=== PATIENT | male | born 1995 | race Caucasian/White ===

== ENCOUNTER 2019-06-06 18:32 | Emergency (ER) | payer OTHER ==
--- NOTE | 2019-06-06 19:07 | ED ---
GI/ HPI - HPI Summary HPI Summary: 24 year old M presenting to [facility] complains of dull pain in his testicle rated 4 /10 in severity after sexual intercourse with his girlfriend at 18:30 today. States his pain developed after he had ejaculated. Doesn't feel sore or like a pulled muscle. No discharge, drainage, swelling, discoloration. No trauma to penis. Hasn't taken any medications for the pain. Never had these sx before. Symptoms aggravated by nothing. Symptoms alleviated by nothing. Patient denies fever, chills, erythema of eyes, sore throat, chest pain, shortness of breath, cough, abdominal pain, nausea/vomiting, dysuria, hematuria, myalgia, edema, rash , or dizziness. - History of Current Complaint Chief Complaint: EDUrogenitalProblems Time Seen by Provider: 06/06/19 19:00 Stated Complaint: GROIN PROBLEM PER PT Hx Obtained From: Patient Onset/Duration: Started Hours Ago, Still Present Timing: Constant Current Severity: Mild Pain Intensity: 3 Location of Pain: Other - left testicle Associated Signs and Symptoms: Positive: Negative - discharge, drainage, swelling, discoloration, fever, chills, erythema of eyes, sore throat, chest pain, shortness of breath, cough, abdominal pain, nausea/vomiting, dysuria, hematuria, myalgia, edema, rash, or dizziness Aggravating Factor(s): Nothing Alleviating Factor(s): Nothing - Allergy/Home Medications Allergies/Adverse Reactions: Allergies Allergy/AdvReac Type Severity Reaction Status Date / Time ibuprofen Allergy Anaphylatic Verified 06/06/19 18:43 Shock Home Medications: Home Medications NK [No Home Medications Reported] 06/06/19 [History Confirmed 06/06/19] PMH/Surg Hx/FS Hx/Imm Hx Endocrine/Hematology History: Denies: Hx Diabetes Cardiovascular History: Denies: Hx Hypertension Respiratory History: Denies: Hx Asthma - Surgical History Surgery Procedure, Year, and Place: 2010 Infectious Disease History: No Infectious Disease History: Denies: Traveled Outside the [place] in Last 30 Days - Family History Known Family History: Positive: Hypertension - father - Social History Alcohol Use: Rare Hx Substance Use: Yes Substance Use Type: Reports: Marijuana Hx Tobacco Use: Yes Smoking Status (MU): Former Smoker Review of Systems Negative: Fever, Chills Negative: Erythema Negative: Sore Throat Negative: Chest Pain Negative: Shortness Of Breath, Cough Negative: Abdominal Pain, Vomiting, Nausea Negative: dysuria, hematuria Negative: Myalgia, Edema Negative: Rash Neurological: Negative - Dizziness All Other Systems Reviewed And Are Negative: Yes Physical Exam - Summary Physical Exam Summary: Constitutional: Well-developed, Well-nourished, Alert. (-) Distressed Skin: Warm, Dry HENT: Normocephalic; Atraumatic Eyes: Conjunctiva normal Neck: Musculoskeletal ROM normal neck. (-) JVD, (-) Stridor, (-) Tracheal deviation Cardio: Rhythm regular, rate normal, Heart sounds normal; Intact distal pulses; The pedal pulses are 2+ and symmetric. Radial pulses are 2+ and symmetric. (-) Murmur Pulmonary/Chest wall: Effort normal. (-) Respiratory distress, (-) Wheezes, (-) Rales Abd: Soft, (-) tenderness, (-) Distension, (-) Guarding, (-) Rebound exam: No testicular tenderness, there is a palpable inguinal mass during exam , no epididymal tenderness Musculoskeletal: (-) Edema Lymph: (-) Cervical adenopathy Neuro: Alert, Oriented x3 Psych: Mood and affect Normal Triage Information Reviewed: Yes Vital Signs On Initial Exam: Initial Vitals Temp Pulse Resp BP Pulse Ox 99.7 F 66 17 136/68 100 06/06/19 18:39 06/06/19 18:39 06/06/19 18:39 06/06/19 18:39 06/06/19 18:39 Vital Signs Reviewed: Yes Procedures - Sedation Patient Received Moderate/Deep Sedation with Procedure: No Diagnostics - Vital Signs Vital Signs Temp Pulse Resp BP Pulse Ox 06/06/19 18:56 76 129/72 99 06/06/19 18:51 92 99 06/06/19 18:39 99.7 F 66 17 136/68 100 - Laboratory Lab Statement: Any lab studies that have been ordered have been reviewed, and results considered in the medical decision making process. - Ultrasound Left testicular Ultrasound Interpretation Completed By: Radiologist Summary of Ultrasound Findings: 1. No testicular mass. Color flow and vascular waveforms are documented bilaterally. 2. No current evidence for epididymitis. 3. Left inguinal hernia. ED physician has reviewed this report. Re-Evaluation - Re-Evaluation First Eval Re-Evaluation Time: 21:06 Comment: informed of results. agrees to d/c GIGU Course/Dx - Course Course Of Treatment: 24 year old M complains of dull pain in his testicle after sexual intercourse with his girlfriend at 18:30 today. States his pain developed after he had ejaculated. No discharge, drainage, swelling, discoloration. No trauma to penis. Never had these sx before. exam findings : No testicular tenderness, there is a palpable inguinal mass during exam, no epididymal tenderness. Urinalysis results with no significant abnormalities. US Left testicle shows, per radiologist: 1. No testicular mass. Color flow and vascular waveforms are documented bilaterally. 2. No current evidence for epididymitis. 3. Left inguinal hernia. In the ED course, the patient was given tramadol 50 mg PO. Patient will be discharged home follow up from Dr. Art in 3-5 days. Patient was instructed to return to Emergency Department for new or worsening symptoms. Patient understands and is agreeable to this plan. - Diagnoses Provider Diagnoses: Left inguinal hernia Discharge ED - Sign-Out/Discharge Documenting (check all that apply): Patient Departure - Discharge Plan Condition: Stable Disposition: HOME Patient Education Materials: Inguinal Hernia (ED) Referrals: Koby Art MD [Medical Doctor] - 3 Days Additional Instructions: Follow up with surgery in 3-5 days. Return to the Emergency Department with new or worsening symptoms. - Attestation Statements Document Initiated by Scribe: Yes Documenting Scribe: Dottie Rivera Provider For Whom Scribe is Documenting (Include Credential): Roni Barkley MD Scribe Attestation: Dottie Trevino, scribed for Roni Barkley MD on 06/06/19 at 2204. Status of Scribe Document: Ready
[2019-06-06] MEDS ORDERED: traMADol TAB* 50 MG PO ONE (19:28)
[2019-06-06 20:45] LABS: Urine Appearance Cloudy; Urine Bilirubin Negative (Negative); Urine Blood Negative (Negative); Urine Color Yellow; Urine Glucose Negative (Negative); Urine Ketones Negative (Negative); Urine Nitrite Negative (Negative); Urine Protein Negative (Negative); Urine Specific Gravity 1.025 (1.010-1.030); Urine Urobilinogen Negative (Negative)
[2019-06-06 21:25] VITALS: BP 145/78
== END 2019-06-06 21:24 | disposition home or self-care (01) ==
LOC: ED 18:32
DX: K40.90 Unilateral inguinal hernia, without obstruction or gangrene, not specified as recurrent (principal); Z87.891 Personal history of nicotine dependence; Z88.6 Allergy status to analgesic agent
CPT/HCPCS: 76870; 81003; 99282; A9270-GY

== ENCOUNTER 2019-06-10 15:09 | Emergency (ER) | payer OTHER ==
--- NOTE | 2019-06-10 16:27 | ED ---
Abdominal Pain/Male - HPI Summary HPI Summary: This patient is a 24 year old M presenting to ED with a chief complaint of groin pain since 06/06/19. Patient came to the ED then and was diagnosed with an inguinal hernia. At the time, the pain was a 3/10 and intermittent. He was given Tramadol but it did not help. The patient returns as he states the pain is worse and is now throbbing and constant. Patient has not been taking anything for pain since he does not like taking pain medication. The patient rates the pain 7/10 in severity. Symptoms aggravated by nothing. Symptoms alleviated by nothing. Patient reports nausea. Patient denies fever, constipation, vomiting, chills. Medications reviewed. Allergies noted. He has an appointment with the surgeon set up for 07/04. - History of Current Complaint Chief Complaint: EDAbdPain Stated Complaint: ABDOMINAL PAIN FROM HERNIA PER PT Time Seen by Provider: 06/10/19 16:13 Hx Obtained From: Patient Onset/Duration: Gradual Onset - 06/06/19, Still Present, Worse Since Timing: Constant, Lasting Days - Since 06/06/19 Severity Initially: Mild Severity Currently: Moderate Pain Intensity: 7 Pain Scale Used: 0-10 Numeric Location: Groin Aggravating Factor(s): Nothing Alleviating Factor(s): Nothing Associated Signs And Symptoms: Positive: Nausea. Negative: Fever, Constipation , Vomiting, Diarrhea - Allergies/Home Medications Allergies/Adverse Reactions: Allergies Allergy/AdvReac Type Severity Reaction Status Date / Time ibuprofen Allergy Anaphylatic Verified 06/10/19 15:53 Shock PMH/Surg Hx/FS Hx/Imm Hx Endocrine/Hematology History: Denies: Hx Diabetes Cardiovascular History: Denies: Hx Hypertension Respiratory History: Denies: Hx Asthma Sensory History: Denies: Hx Legally Blind, Hx Deafness Opthamlomology History: Denies: Hx Legally Blind EENT History: Denies: Hx Deafness - Surgical History Surgery Procedure, Year, and Place: 2010 Infectious Disease History: No Infectious Disease History: Denies: Traveled Outside the [place] in Last 30 Days - Family History Known Family History: Positive: Hypertension - father - Social History Alcohol Use: Rare Hx Substance Use: Yes Substance Use Type: Reports: Marijuana Hx Tobacco Use: Yes Smoking Status (MU): Former Smoker Review of Systems Negative: Fever, Chills Gastrointestinal: Negative - Constipation Positive: Abdominal Pain, Nausea. Negative: Vomiting All Other Systems Reviewed And Are Negative: Yes Physical Exam - Summary Physical Exam Summary: Constitutional: Well-developed, Well-nourished, Alert. (-) Distressed Skin: Warm, Dry HENT: Normocephalic; Atraumatic Eyes: Conjunctiva normal Neck: Musculoskeletal ROM normal neck. (-) JVD, (-) Stridor, (-) Tracheal deviation Cardio: Rhythm regular, rate normal, Heart sounds normal; Intact distal pulses; Radial pulses are 2+ and symmetric. (-) Murmur Pulmonary/Chest wall: Effort normal. (-) Respiratory distress, (-) Wheezes, (-) Rales Abd: Securities Clerk present in the room for groin exam. Small inguinal defect noted. No obvious erythema, areas of tenderness. Musculoskeletal: (-) Edema Lymph: (-) Cervical adenopathy Neuro: Alert, Oriented x3 Psych: Mood and affect Normal Triage Information Reviewed: Yes Vital Signs On Initial Exam: Initial Vitals Temp Pulse Resp BP Pulse Ox 98.6 F 71 16 140/71 99 06/10/19 15:50 06/10/19 15:50 06/10/19 15:50 06/10/19 15:50 06/10/19 15:50 Vital Signs Reviewed: Yes Procedures - Sedation Patient Received Moderate/Deep Sedation with Procedure: No Diagnostics - Vital Signs Vital Signs Temp Pulse Resp BP Pulse Ox 06/10/19 15:50 98.6 F 71 16 140/71 99 - Laboratory Lab Statement: Any lab studies that have been ordered have been reviewed, and results considered in the medical decision making process. Re-Evaluation - Re-Evaluation First Eval Re-Evaluation Time: 17:19 Comment: Patient reports the pain is about the same but he feels good to go home with pain management while he waits for his surgery. Strict return precautions given. Patient will be discharged home with dx of inguinal hernia. Patient understands and agrees with this plan. Abdominal Pain Male Course/Dx - Course Course Of Treatment: Patient is here with pain in his left groin secondary to an inguinal hernia. Patient has no evidence of strangulated or incarcerated hernia on physical exam. Patient was given a [place] 5 improvement in symptoms. Patient has follow up with surgery roughly 3 weeks on July 04. Patient is discharged with tramadol for pain control. - Diagnoses Provider Diagnoses: Inguinal hernia Discharge ED - Sign-Out/Discharge Documenting (check all that apply): Patient Departure - Discharge - Discharge Plan Condition: Stable Disposition: HOME Prescriptions: traMADol TAB* [Ultram*] 50 mg PO Q12H PRN #12 tab MDD 2 tablets PRN Reason: Pain - Severe Patient Education Materials: Inguinal Hernia (ED) Referrals: [facility] [Outside] - 3 Days Additional Instructions: Use ice and Tylenol. You may use the stronger pain meds if necessary as well. If you get a big red bulge in the scrotum, or the pain becomes way more severe, or if you develop a fever or start vomiting, please return to the ER immediately. - Billing Disposition and Condition Condition: STABLE Disposition: Home - Attestation Statements Document Initiated by Beritn: Yes Documenting Scribe: Javier Love Provider For Whom Bertin is Documenting (Include Credential): Stevie Hutchison MD Scribe Attestation: Javier Trevino, scribed for Stevie Hutchison MD on 06/10/19 at 1744. Scribe Documentation Reviewed: Yes Provider Attestation: The documentation as recorded by the Javier crocker accurately reflects the service I personally performed and the decisions made by , Stevie Hutchison MD Status of Scribwayne Document: Viewed
[2019-06-10] MEDS ORDERED: HYDROcodone/ACETAMIN 5-325 MG* 1 TAB PO ONE (16:29)
[2019-06-10 18:07] VITALS: BP 130/79
== END 2019-06-10 18:06 | disposition home or self-care (01) ==
LOC: ED 15:09
DX: K40.90 Unilateral inguinal hernia, without obstruction or gangrene, not specified as recurrent (principal); R11.0 Nausea; Z88.6 Allergy status to analgesic agent; Z87.891 Personal history of nicotine dependence
CPT/HCPCS: 99282

== ENCOUNTER 2019-07-17 14:54 | Emergency (ER) | payer SELFPAY ==
[2019-07-17 16:40] VITALS: BP 128/68
[2019-07-17 17:04] LABS: Hepatitis B Surface Antigen Nonreactive (Nonreactive)
[2019-07-17 17:06] LABS: HIV 4th Generation Nonreactive (Nonreactive)
[2019-07-17 17:21] LABS: Hepatitis B Surface Ab Immune (Immune); Hepatitis C Antibody Negative (Negative)
--- NOTE | 2019-07-18 07:19 | ED ---
- HPI Summary HPI Summary: Pt is a 24-year-old otherwise healthy male presenting to the ED with a needlestick. 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 He was pulling the catheter over needle that was recently used on a 14- year-old patient with no past medical history when stuck in the index finger. He was able wash this out quickly. He came to the ED for further evaluation. He does not have a current history of HIV or hep C. Patient states they will contact source patient. 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 - Source Information HIV: No Hepatitis: No - Risk Factors Needlestick Risk Factor: Low Risk: Short Duration - Other Discussed Post-Exposure prophylaxis (PEP) for HIV: Declined Discussed PEP for Hepatitis-B: Declined Serologic Testing (HIV/HBV) Declined by Patient: No (Must be retained for 90 days, if drawn) PMH/Surg Hx/FS Hx/Imm Hx Previously Healthy: Yes Endocrine/Hematology History: Reports: Hx Thyroid Disease - SL LOW THYROID NO MEDS Denies: Hx Diabetes Cardiovascular History: Denies: Hx Hypertension Respiratory History: Denies: Hx Asthma GI History: Reports: Other GI Disorders - INGUNIAL HERNIA Sensory History: Denies: Hx Contacts or Glasses, Hx Legally Blind, Hx Deafness, Hx Hearing Aid Opthamlomology History: Denies: Hx Contacts or Glasses, Hx Legally Blind - Surgical History Surgery Procedure, Year, and Place: wisdom teeth 2011. TONSILECTOMY 2008 Hx Anesthesia Reactions: No - Immunization History Date of Tetanus Vaccine: under 10 years Hx Pertussis Vaccination: No Immunizations Up to Date: Yes Infectious Disease History: No Infectious Disease History: Denies: Traveled Outside the [place] in Last 30 Days - Family History Known Family History: Positive: Hypertension - father - Social History Occupation: Employed Full-time Lives: With Family Alcohol Use: Rare Alcohol Amount: 1-2 DRINKS MONTHLY Hx Substance Use: Yes Substance Use Type: Reports: Marijuana Substance Use Comment - Amount & Last Used: MARIJUANA OCCASIONALLY Hx Tobacco Use: Yes Smoking Status (MU): Former Smoker Review of Systems Negative: Fever, Chills, Fatigue, Skin Diaphoresis Negative: Palpitations, Chest Pain Negative: Shortness Of Breath, Cough Genitourinary: Negative Positive: no symptoms reported, see HPI Negative: Arthralgia, Myalgia Skin: Negative Positive: Headache, Weakness All Other Systems Reviewed And Are Negative: Yes Physical Exam Triage Information Reviewed: Yes Vital Signs On Initial Exam: Initial Vitals Temp Pulse Resp BP Pulse Ox 98.8 F 73 19 148/83 99 07/17/19 14:57 07/17/19 14:57 07/17/19 14:57 07/17/19 14:57 07/17/19 14:57 Vital Signs Reviewed: Yes Appearance: Positive: Well-Appearing, Well-Nourished Skin: Positive: Warm, Skin Color Reflects Adequate Perfusion Head/Face: Positive: Normal Head/Face Inspection Eyes: Positive: Normal, KEENAN, Conjunctiva Clear Neck: Positive: Supple Respiratory/Lung Sounds: Positive: Clear to Auscultation, Breath Sounds Present Cardiovascular: Positive: RRR, Pulses are Symmetrical in both Upper and Lower Extremities Musculoskeletal: Positive: Strength/ROM Intact Psychiatric: Positive: Affect/Mood Appropriate Procedures - Sedation Patient Received Moderate/Deep Sedation with Procedure: No Diagnostics - Vital Signs Vital Signs Temp Pulse Resp BP Pulse Ox 07/17/19 16:39 98.3 F 78 16 128/68 99 07/17/19 14:57 98.8 F 73 19 148/83 99 - Laboratory Lab Results: Lab Results 07/17/19 07/17/19 Range/Units 16:06 16:06 Hepatitis B Antibody Immune (Immune) Hep Bs Antigen Nonreactive (Nonreactive) Hepatitis C Antibody Negative (Negative) Hepatitis C Ab Index 0.05 s/c HIV 1&2 Ab/P24 Ag 4thGn Nonreactive (Nonreactive) Lab Statement: Any lab studies that have been ordered have been reviewed, and results considered in the medical decision making process. Needlestick Course/Dx - Course Course Of Treatment: On arrival to the ED, labs are obtained including an HIV, hep B and hep C panel. Will call patient with any positive results. Patient's work able to contact source patient. Nothing further at this time. - Diagnoses Provider Diagnoses: Needle stick injury Discharge ED - Sign-Out/Discharge Documenting (check all that apply): Patient Departure - Discharge Plan Condition: Stable Disposition: HOME Referrals: No Primary Care Phys,NOPCP [Primary Care Provider] - Additional Instructions: Will contact with any positive results - Billing Disposition and Condition Condition: STABLE Disposition: Home - Attestation Statements Provider Attestation: I was available for consultation for this patient. I did not evaluate the patient or participate in any medical decision making or disposition decisions unless I am specifically named in the chart as having consulted on the patient. If I have consulted on the patient, please see my own ED note on the patient encounter. Ludy Louis MD
== END 2019-07-17 16:38 | disposition home or self-care (01) ==
LOC: ED 14:54
DX: S61.238A Puncture wound without foreign body of other finger without damage to nail, initial encounter (principal); W46.0XXA Contact with hypodermic needle, initial encounter; Y92.531 Health care provider office as the place of occurrence of the external cause; Y99.0 Civilian activity done for income or pay
CPT/HCPCS: 36415; 86706; 86803; 87340; 87389; 99282